=== PATIENT | male | born 1990 | race Caucasian/White ===

== ENCOUNTER 2021-03-25 13:09 | Day surgery (SDC) | payer OTHER ==
[~2021-03-25] VITALS: Ht 203.2 cm; Wt 95.2 kg
--- NOTE | 2021-03-25 14:25 | NUR ---
03/25/21 1425 Jessy Ryan OFFICER ANNETTE AT BEDSIDE WITH PATIENT.
--- NOTE | 2021-03-25 17:22 | NUR ---
03/25/21 1722 Milan Ortega 0.15ML OF EPI 1MG/ML ADDDED TO 30ML OF BUPIVICAINE 0.5% TO FORM A LOCAL OF BUPIVICAINE 0.5% WITH EPI 1:200,000. THE BUPIVICAINE WITH EPI WAS THEN MIXED 1:1 WITH LIDOCAINE 1% FOR LOCAL ANESTHESIA.
== END 2021-03-25 18:13 | disposition home or self-care (01) ==
LOC: ORSCSDS 13:09
PROVIDERS: Orthopaedic Surgery
PROC: 0RSX04Z Reposition Left Finger Phalangeal Joint with Internal Fixation Device, Open Approach (ICD-10-PCS; principal; 2021-03-25 15:00)
DX: S63.287A Dislocation of proximal interphalangeal joint of left little finger, initial encounter (principal); Z87.891 Personal history of nicotine dependence
CPT/HCPCS: J0171; J0690; J1100; J2250; J2370; J2405; J2704; J3010; J7120